=== PATIENT | female | born 1975 | race Caucasian/White ===

== ENCOUNTER 2017-06-03 08:42 | Emergency (ER) | payer MEDICAID ==
[~2017-06-03] VITALS: Ht 167.6 cm; Wt 82.8 kg
[2017-06-03 09:44] LABS: URINE HCG NEGATIVE (NEG)
[2017-06-03] MEDS ORDERED: azithromycin 250mg tablet PO ONE (10:00)
[2017-06-03] MEDS ORDERED: CefTRIAXone 1000mg IM Kit (w/lidocaine diluent) IM ONE (10:00)
[2017-06-03] MEDS ORDERED: METR500T4 PO (10:00)
[2017-06-03 10:04] VITALS: BP 116/72
== END 2017-06-03 10:37 | disposition home or self-care (01) ==
LOC: ER 08:44
DX: N64.52 Nipple discharge (principal); N89.8 Other specified noninflammatory disorders of vagina; N64.4 Mastodynia; Z88.8 Allergy status to other drugs, medicaments and biological substances; Z79.899 Other long term (current) drug therapy
CPT/HCPCS: 36415; 81025; 87210; 87491; 87591; 96372; 99284; J0696

== ENCOUNTER 2017-07-11 11:28 | Emergency (ER) | payer MEDICAID ==
[~2017-07-11] VITALS: Ht 167.6 cm; Wt 79.8 kg
[2017-07-11 11:33] VITALS: BP 114/90
[2017-07-11] MEDS ORDERED: POLY119P2 PO (12:08)
[2017-07-11] MEDS ORDERED: magnesium citrate 296ml oral solution PO ONE (12:10)
== END 2017-07-11 12:34 | disposition home or self-care (01) ==
LOC: ER 11:29
DX: K59.00 Constipation, unspecified (principal); Z88.8 Allergy status to other drugs, medicaments and biological substances; Z79.899 Other long term (current) drug therapy
CPT/HCPCS: 99282

== ENCOUNTER 2017-07-24 09:01 | Emergency (ER) | payer MEDICAID ==
[~2017-07-24] VITALS: Ht 167.6 cm; Wt 94.8 kg
[~2017-07-24 09:01] MED LIST: POLY119P2 PO
[2017-07-24 09:47] LABS: BASOPHILS % (AUTO) 0.7 % (0-1); EOSINOPHILS # (AUTO) 0.3 X10'3 (0-0.9); EOSINOPHILS % (AUTO) 4.9 % (0-6); HEMATOCRIT 30.2 % (35.0-45.0); HEMOGLOBIN 10.3 g/dl (12.0-16.0); LYMPHOCYTES # (AUTO) 2.1 X10'3 (1.1-4.8); LYMPHOCYTES % (AUTO) 33.1 % (21-51); MEAN CORPUSCULAR HEMOGLOBIN 32.2 PG (27.0-31.0); MEAN CORPUSCULAR VOLUME 94.8 FL (78-98); MEAN PLATELET VOLUME 9.2 FL (7.4-10.4); MONOCYTES # (AUTO) 0.4 X10'3 (0-0.9); NEUTROPHILS # (AUTO) 3.4 X10'3 (1.8-7.7); NEUTROPHILS % (AUTO) 55.3 % (42-75); PLATELET COUNT 213 X10'3 (140-440); RED BLOOD COUNT 3.18 X10'6 (4.20-5.60); RED CELL DISTRIBUTION WIDTH 14.5 % (11.5-14.5); WHITE BLOOD COUNT 6.2 X10'3 (4.5-11.0)
[2017-07-24 09:54] LABS: URINE HCG NEGATIVE (NEG)
[2017-07-24 09:57] LABS: CLARITY,URINE CLEAR (Clear); COLOR,URINE YELLOW (Yellow); GLUCOSE, URINE NEGATIVE (Neg); KETONES,URINE NEGATIVE (Neg); LEUKOCYTE ESTERASE ,URINE NEGATIVE (Neg); NITRITES, URINE NEGATIVE (Neg); OCCULT BLOOD,URINE NEGATIVE (Neg); PROTEIN,URINE NEGATIVE (Neg); UROBILINOGEN,URINE 0.2 E.U/dL (0.2-1.0)
[2017-07-24 10:01] LABS: ALANINE AMINOTRANSFERASE 92 U/L (12-78); ALBUMIN 3.6 G/DL (3.4-5.0); ALBUMIN/GLOBULIN RATIO 1.1 (1.1-1.5); ALKALINE PHOSPHATASE 53 IU/L (46-116); ANION GAP 7 (8-16); ASPARTATE AMINO TRANSFERASE 52 U/L (10-37); BILIRUBIN,TOTAL 0.5 MG/DL (0.1-1.0); BLOOD UREA NITROGEN 21 MG/DL (7-18); BUN/CREATININE RATIO 15.1 (6.6-38.0); CALCIUM 8.7 MG/DL (8.5-10.1); CHLORIDE 106 MMOL/L (99-107); CREATININE 1.39 MG/DL (0.40-0.90); GLUCOSE 84 MG/DL (70-104); POTASSIUM 5.2 MMOL/L (3.5-5.1); SODIUM 139 MMOL/L (135-145); TOTAL CARBON DIOXIDE 25.9 MMOL/L (24-32); TOTAL PROTEIN 6.8 G/DL (6.4-8.2); eGFR 42 ML/MIN
[2017-07-24 10:03] LABS: UA COLLECTION TYPE CLN CATCH MIDSTREAM
[2017-07-24 10:29] VITALS: BP 132/72
== END 2017-07-24 10:52 | disposition home or self-care (01) ==
LOC: ER 09:02
DX: R10.9 Unspecified abdominal pain (principal); Z88.6 Allergy status to analgesic agent; Z88.8 Allergy status to other drugs, medicaments and biological substances; Z79.899 Other long term (current) drug therapy
CPT/HCPCS: 36415; 80053; 81003; 81025; 85025; 99284

== ENCOUNTER 2018-12-18 06:50 | Day surgery (SDC) | payer MEDICAID ==
[2018-12-16 08:55] LABS: BASOPHILS % (AUTO) 0.5 % (0-1); EOSINOPHILS # (AUTO) 0.3 X10'3 (0-0.9); EOSINOPHILS % (AUTO) 3.4 % (0-6); LYMPHOCYTES # (AUTO) 1.6 X10'3 (1.1-4.8); LYMPHOCYTES % (AUTO) 20.1 % (21-51); MEAN CORPUSCULAR HEMOGLOBIN 31.5 PG (27.0-31.0); MEAN CORPUSCULAR HGB CONC 33.3 g/dL (33.0-36.5); MEAN CORPUSCULAR VOLUME 94.4 FL (78-98); MEAN PLATELET VOLUME 10.3 FL (7.4-10.4); MONOCYTES # (AUTO) 0.6 X10'3 (0-0.9); MONOCYTES % (AUTO) 7.2 % (2-12); NEUTROPHILS # (AUTO) 5.6 X10'3 (1.8-7.7); NEUTROPHILS % (AUTO) 68.8 % (42-75); PRE OP HEMATOCRIT 37.2 % (35.0-45.0); PRE OP HEMOGLOBIN 12.4 g/dL (12.0-16.0); PRE OP PLATELET COUNT 225 X10'3 (140-440); RED BLOOD COUNT 3.94 X10'6 (4.20-5.60); RED CELL DISTRIBUTION WIDTH 13.3 % (11.5-14.5)
[2018-12-16 09:17] LABS: ALBUMIN 3.4 G/DL (3.4-5.0); ALBUMIN/GLOBULIN RATIO 0.9 (1.1-1.5); ALKALINE PHOSPHATASE 89 IU/L (46-116); BLOOD UREA NITROGEN 14 MG/DL (7-18); CALCIUM 8.9 MG/DL (8.5-10.1); CHLORIDE 107 MMOL/L (99-107); CREATININE 1.17 MG/DL (0.40-0.90); PRE OP ALT 24 U/L (30-65); PRE OP ANION GAP 7 (8-16); PRE OP AST 16 U/L (10-37); PRE OP BILIRUB, TOTAL 0.6 MG/DL (0.0-1.0); PRE OP GLUCOSE 85 MG/DL (70-104); PRE OP POTASSIUM 4.1 MMOL/L (3.4-5.1); PRE OP SODIUM 140 MMOL/L (135-145); TOTAL CARBON DIOXIDE 25.6 MMOL/L (24-32); TOTAL PROTEIN 7.1 G/DL (6.4-8.2); eGFR 51 ML/MIN
[2018-12-16 09:24] LABS: CLARITY,URINE CLOUDY (Clear); COLOR,URINE YELLOW (Yellow); GLUCOSE, URINE NEGATIVE (Neg); KETONES,URINE NEGATIVE (Neg); LEUKOCYTE ESTERASE ,URINE MODERATE (Neg); NITRITES, URINE NEGATIVE (Neg); OCCULT BLOOD,URINE NEGATIVE (Neg); PROTEIN,URINE NEGATIVE (Neg); UROBILINOGEN,URINE 0.2 E.U/dL (0.2-1.0)
[2018-12-16 09:30] LABS: HCG SERUM QL NEGATIVE
[2018-12-16 09:41] LABS: MUCUS STRANDS FEW /LPF (Neg); SQUAMOUS EPITHELIAL CELL,UR MANY /LPF (FEW); UA COLLECTION TYPE CLN CATCH MIDSTREAM
[2018-12-16 09:46] LABS: BACTERIA,URINE 1+ /HPF (Neg); RBC,URINE 0-2 /HPF (0-2)
[2018-12-18] VITALS (7 sets, daily range): BP systolic 101–141; BP diastolic 64–105
[~2018-12-18] VITALS: Ht 167.6 cm; Wt 111.6 kg
[~2018-12-18 06:50] MED LIST changes: +BUPR1FIL3 SL; +BUPR75TA8 PO; +CLON0.1T PO; +FAMO20TA8 PO; +HYDR-4383 PO; +IBUP-1984 PO; +LEVO200T8 PO; +LITH150C8 PO; -POLY119P2 PO; +ceFOXitin 2 GM ADDvantage bag 100 ML IV ONE; +famotidine 20mg tablet PO ONE; +ringers solution, lacted 1,000 ML IV SCH
[2018-12-18] MEDS ORDERED: BUPIVAcaine/PF 2.5mg/ml (0.25%) 10ml vial ONE (07:14)
[2018-12-18] MEDS ORDERED: BUPIVAcaine/PF 2.5 mg/ml (0.25%) 30ml vial ONE (07:14)
--- NOTE | 2018-12-18 07:20 | NUR ---
PT INFORMED RN THAT SHE HAS AN ACTIVE YEAST INFECTION BUT HAS NOT STARTED MEDICATION. DR BUSTOS NOTIFIED. SURGERY WILL CONTINUE PLANNED.
[2018-12-18] MEDS ORDERED: ringers solution, lacted 1,000 ML IV SCH (07:21)
[2018-12-18] MEDS ORDERED: hydrALAZINE 20mg/ml inj. IV PRN (07:25)
[2018-12-18] MEDS ORDERED: fentaNYL/PF 50MCG/1 ML 2ML syringe IV PRN ×2 (07:25)
[2018-12-18] MEDS ORDERED: morphine 4 MG/ML inj SYRINge IV PRN ×2 (07:25)
[2018-12-18] MEDS ORDERED: labetalol 20mg/4ml (5mg/ml) syringe IV PRN (07:25)
[2018-12-18] MEDS ORDERED: fentaNYL/PF 50MCG/1 ML 2ML syringe ONE (08:23)
[2018-12-18] MEDS ORDERED: midazolam 2 mg/2 ml injection ONE (08:23)
[2018-12-18] MEDS ORDERED: LIDOcaine 1%/PF 5ML 10 MG/ML VIAL ONE (08:33)
[2018-12-18] MEDS ORDERED: propofol inj 20 ML IV ONE (08:33)
[2018-12-18] MEDS ORDERED: dexamethasone sod phosphate 4mg/ml inj. ONE (08:40)
[2018-12-18] MEDS ORDERED: ondansetron/PF 4mg/2ml inj ONE (08:40)
[2018-12-18] MEDS ORDERED: rocuronium 10mg/ml inj IV ONE (08:53)
[2018-12-18] MEDS ORDERED: MIDAZolam 5mg/5ml vial ONE (09:17)
--- NOTE | 2018-12-18 09:23 | NUR ---
Received from OR via , accompanied by Anesthesiologist DR OTTO and report given by Anesthesiolgist. AWAKENS TO VOICE. VITALS STABLE. DRESSINGS DI. MAIKEL PAIN.
[2018-12-18] MEDS: ondansetron/PF 4mg/2ml inj IV PRN ×2 (09:48→09:49)
[2018-12-18] MEDS ORDERED: acetaminophen 1,000mg/100ml IV 100 ML IV SCH (10:00)
[2018-12-18] MEDS ORDERED: acetaminophen 1,000mg/100ml IV 100 ML IV ONE (10:02)
--- NOTE | 2018-12-18 10:33 | NUR ---
AWAKE AND ORIENTED. VITALS STABLE. DRESSING DI. STATES PAIN IMPROVING. HOME WITH HER SPOUSE AT THIS TIME.
== END 2018-12-18 10:33 | disposition home or self-care (01) ==
LOC: PAS 06:50
PROVIDERS: ATTEND Obstetrics & Gynecology Obstetrics
DX: Z30.2 Encounter for sterilization (principal); F41.9 Anxiety disorder, unspecified; F17.210 Nicotine dependence, cigarettes, uncomplicated; F43.10 Post-traumatic stress disorder, unspecified; K21.9 Gastro-esophageal reflux disease without esophagitis; E66.01 Morbid (severe) obesity due to excess calories; Z68.39 Body mass index [BMI] 39.0-39.9, adult; Z86.19 Personal history of other infectious and parasitic diseases; Z86.14 Personal history of Methicillin resistant Staphylococcus aureus infection; Z88.8 Allergy status to other drugs, medicaments and biological substances; Z98.890 Other specified postprocedural states; Z79.899 Other long term (current) drug therapy
CPT/HCPCS: 36415; 58671; 71046; 80053; 81001; 82948; 84703; 85025; 86885; 86900; 86901; 93005; A4264; J0131; J0694; J1100; J2250; J2405; J2704; J3010; J3490; A4618; A7000; J7120

== ENCOUNTER 2022-06-26 10:02 | Outpatient (CLI) | payer MEDICAID ==
[~2022-06-26 10:02] MED LIST changes: -ceFOXitin 2 GM ADDvantage bag 100 ML IV ONE; -famotidine 20mg tablet PO ONE; -ringers solution, lacted 1,000 ML IV SCH
== END 2022-06-26 23:59 | disposition home or self-care (01) ==
LOC: RAD 10:02
PROVIDERS: ATTEND General Practice
DX: I51.7 Cardiomegaly (principal); R00.1 Bradycardia, unspecified; F11.20 Opioid dependence, uncomplicated
CPT/HCPCS: 93005

== ENCOUNTER 2022-07-24 09:53 | Outpatient (CLI) | payer MEDICAID | END 2022-07-24 23:59 | disposition home or self-care (01) | LOC: RAD 09:53 | PROVIDERS: ATTEND General Practice | DX: R00.1 Bradycardia, unspecified (principal); F11.20 Opioid dependence, uncomplicated; R76.11 Nonspecific reaction to tuberculin skin test without active tuberculosis | CPT/HCPCS: 93005 ==

== ENCOUNTER 2022-08-28 10:56 | Outpatient (CLI) | payer MEDICAID | END 2022-08-28 23:59 | disposition home or self-care (01) | LOC: RAD 10:56 | PROVIDERS: ATTEND General Practice | DX: R00.1 Bradycardia, unspecified (principal); I51.7 Cardiomegaly; F11.20 Opioid dependence, uncomplicated | CPT/HCPCS: 93005 ==

== ENCOUNTER 2022-09-14 10:47 | Outpatient (CLI) | payer MEDICAID | END 2022-09-14 23:59 | disposition home or self-care (01) | LOC: RAD 10:47 | PROVIDERS: ATTEND General Practice | DX: R00.1 Bradycardia, unspecified (principal); F11.20 Opioid dependence, uncomplicated | CPT/HCPCS: 93005 ==

== ENCOUNTER 2023-02-19 11:56 | Outpatient (CLI) | payer MEDICAID | END 2023-02-19 23:59 | disposition home or self-care (01) | LOC: RAD 11:56 | PROVIDERS: ATTEND Physician Assistant | DX: I45.19 Other right bundle-branch block (principal); F11.20 Opioid dependence, uncomplicated | CPT/HCPCS: 93005 ==

== ENCOUNTER 2023-12-18 08:08 | Outpatient (CLI) | payer MEDICAID | END 2023-12-18 23:59 | disposition home or self-care (01) | LOC: RAD 08:08 | PROVIDERS: ATTEND Physician Assistant | DX: R94.31 Abnormal electrocardiogram [ECG] [EKG] (principal); F11.20 Opioid dependence, uncomplicated | CPT/HCPCS: 93005 ==